=== PATIENT | female | born 1990 | race Two or more races ===

== ENCOUNTER 2017-09-05 15:39 | Emergency (ER) | payer MEDICAID ==
[~2017-09-05] VITALS: Ht 172.7 cm; Wt 100.1 kg
[~2017-09-05 15:39] MED LIST: PREN1TAB11 PO
[2017-09-05 16:36] LABS: HEMOGLOBIN 11.4 g/dL (11.7-16.4); WHITE BLOOD COUNT 10.5 x10^3/uL (3.4-10)
[2017-09-05 17:30] VITALS: BP 128/97
[2017-09-05 18:00] LABS: ASPARTATE AMINO TRANSFERASE 14 U/L (15-37); BLOOD UREA NITROGEN 6 mg/dL (7-18)
== END 2017-09-05 18:58 | disposition left against medical advice (07) ==
LOC: ED 18:00
DX: O26.892 Other specified pregnancy related conditions, second trimester (principal); Z3A.19 19 weeks gestation of pregnancy; R82.71 Bacteriuria
CPT/HCPCS: 36415; 76815; 80053; 81001; 84702; 85025; 87086; 99285